=== PATIENT | male | born 1975 | race Caucasian/White ===

== ENCOUNTER 2019-07-13 13:08 | Emergency (ER) | payer MEDICAID ==
--- NOTE | 2019-07-13 14:36 | ED Physician Documentation ---
History of Present Illness - Stated complaint Stated Complaint: FATIGUE/BODY ACHES - Chief complaint Chief Complaint: General - History obtained from History obtained from: Patient - History of Present Illness Timing: How many days ago (6) - Additonal information Additional information: 44-year-old male who was recently traveled to [place] has returned with body aches and pains and fatigue. He has had some nasal congestion and sneezing he denies any cough or fever. He felt that he would feel normal after a night sleep and he is continued to have significant fatigue. He does not have other specific symptoms and is concerned about the coronavirus. Review of Systems Constitutional: reports: Myalgias, Fatigue. denies: Fever, Chills Eyes: denies: Decreased vision Ears: denies: Ear pain Nose: reports: Congestion. denies: Rhinorrhea / runny nose Throat: denies: Sore throat Cardiac: denies: Chest pain / pressure, Palpitations Respiratory: denies: Dyspnea, Cough GI: denies: Nausea, Vomiting : denies: Dysuria, Frequency PD PAST MEDICAL HISTORY - Allergies Allergies/Adverse Reactions: Allergies Allergy/AdvReac Type Severity Reaction Status Date / Time No Known Drug Allergies Allergy Verified 07/13/19 13:19 PD ED PE NORMAL - Vitals Vital signs reviewed: Yes (Hypertensive) - General General: Alert and oriented X 3, No acute distress, Well developed/nourished - HEENT HEENT: Atraumatic, PERRL, EOMI, Ears normal, Moist mucous membranes, Pharynx benign, Dentition benign - Neck Neck: Supple, no meningeal sign, No bony TTP - Cardiac Cardiac: RRR, No murmur - Respiratory Respiratory: No respiratory distress, Clear bilaterally - Abdomen Abdomen: Soft, Non tender - Back Back: No CVA TTP, No spinal TTP - Derm Derm: Normal color, Warm and dry, No rash - Extremities Extremities: No deformity, No edema, No calf tenderness / cord - Neuro Neuro: Alert and oriented X 3, monotype mechanic 2-12 intact, No motor deficit, No sensory deficit, Normal speech Eye Opening: Spontaneous Motor: Obeys Commands Verbal: Oriented GCS Score: 15 - Psych Psych: Normal mood, Normal affect Results - Vitals Vitals: Vital Signs - 24 hr 07/13/19 13:16 Temperature 36.4 C L Heart Rate 63 Respiratory 16 Rate Blood Pressure 137/70 H O2 Saturation 99 Oxygen O2 Source Room air - Labs Labs: Laboratory Tests 07/13/19 13:30 Influenza A (Rapid) Negative Influenza B (Rapid) Negative PD MEDICAL DECISION MAKING - ED course Complexity details: reviewed results, re-evaluated patient, considered differential, d/w patient ED course: 44-year-old male with fatigue is his main symptom does not have cough or fever and his risk for coronavirus is now. Likely has a viral syndrome and we have di scussed reasons to return to the emergency department. Departure - Departure Disposition: 01 Home, Self Care Clinical Impression: Viral syndrome Fatigue Qualifiers: Fatigue type: unspecified Qualified Code(s): R53.83 - Other fatigue Condition: Stable Instructions: ED Viral Syndrome Follow-Up: [facility] [Provider Group] Forms: Activity restrictions
[2019-07-13 14:43] VITALS: BP 122/86
== END 2019-07-13 14:44 | disposition home or self-care (01) ==
LOC: ED 13:08
DX: B34.9 Viral infection, unspecified (principal); R53.83 Other fatigue
CPT/HCPCS: 87275; 87276; 99283